=== PATIENT | female | born 1960 | race Caucasian/White ===

== ENCOUNTER 2017-01-16 22:42 | Emergency (ER) | payer BC ==
--- NOTE | ~2017-01-16 | CT71 ---
[facility] A Service [facility] RADIOLOGY TEXT RESULTS PATIENT: RADHA NAVAS LOCATION: SED : 56 UNIT #: [id number] AGE: [address]: Joseph Hackett MD SEX: F ORDER DR: [id number] [place] [id number] MR#: [id number] Acc #: [id number] NAME: RADHA NAVAS : 1960 SEX: F STUDY DATE/TIME: 01/17/2017 0:06 UNIT: SED ROOM: STUDY DESCRIPTION: CT Head Wo Contrast Attending Physician: Joseph Hackett M.D. Ordering Physician: Joseph Hackett M.D. Primary Care Physician: Primary Care Physician No MEDICAL IMAGING REPORT This report is preliminary unless electronic signature is present. EXAM CT scan of the head without contrast INDICATION Weakness, tingling in legs, tired for 13 days. FINDINGS Axial noncontrast images were obtained from the skull base to the vertex. This CT examination was performed with one or more of the following radiation dose reduction techniques: automatic exposure control, adjustment of mA and/or kV according to patient size, and iterative reconstruction. Ventricular size and configuration are normal. There is no evidence of acute infarct or hemorrhage. There are no extraaxial fluid collections. No mass lesion or mass effect is seen. There are no skull fractures. IMPRESSION Normal noncontrast head CT. Dictated by... Shaggy Lynn M.D. THIS IS AN ELECTRONICALLY VERIFIED REPORT Shaggy Lynn M.D. at 01/17/2017 1:30 PM NEGRITA/narciso [facility] A Service [facility] RADIOLOGY TEXT RESULTS PATIENT: RADHA NAVAS LOCATION: SED : 56 UNIT #: [id number] AGE: [address]: Joseph Hackett MD SEX: F ORDER DR: TD: 01/17/2017 08:03 JOB #: [id number] MEDICAL IMAGING REPORT Page 1 of 1
--- NOTE | ~2017-01-16 | EKG ---
PATIENT: RADHA NAVAS UNIT #: [id number] Ventricular Rate: 70 BPM Atrial Rate: 70 BPM P-R Interval: 142 ms QRS Duration: 70 ms Q-T Interval: 404 ms QTC Calculation(Bezet): 436 ms P [place]: 79 degrees Calculated R [place]: 73 degrees Calculated T [place]: 77 degrees Diagnosis Line: Normal sinus rhythm Diagnosis Line: ST abnormality, possible digitalis effect Diagnosis Line: Abnormal ECG Diagnosis Line: No previous ECGs available Diagnosis Line: Confirmed by LATESHA MAC MD ([id number]) on Diagnosis Line: 01/28/2017 8:26:39 AM INTERPRETING MD: ESTEFANIA DICKENS
[2017-01-16] MEDS ORDERED: MUCINEX DM ER1 EACH (23:01)
[2017-01-16] MEDS ORDERED: PROGESTERONE100 MG (23:01)
[2017-01-16] MEDS ORDERED: TRAZODONE (23:02)
[2017-01-16] MEDS ORDERED: LAMICTAL ODT200 MG (23:02)
[2017-01-16] MEDS ORDERED: ESTRADIOL1 MG (23:02)
[2017-01-16] MEDS ORDERED: ADDERALL (23:02)
[2017-01-16] MEDS ORDERED: PREDNISONE (23:02)
[2017-01-16] MEDS ORDERED: OMNICEF (23:03)
[2017-01-16] MEDS ORDERED: PROAIR HFA8.5 GM (23:03)
[2017-01-16 23:36] LABS: URINE SOURCE CLEAN CATCH
[2017-01-16 23:39] LABS: URINE APPEARANCE CLEAR; URINE BILIRUBIN NEG (NEG); URINE BLOOD NEG (NEG); URINE COLOR YELLOW; URINE GLUCOSE NEG (NORM); URINE KETONE NEG (NEG); URINE LEUKOCYTE ESTERASE NEG (NEG); URINE NITRATE NEG (NEG); URINE PROTEIN NEG (NEG); URINE SPECIFIC GRAVITY 1.015 (1.003-1.035)
[2017-01-16 23:40] LABS: MICRO INDICATED? NO
[2017-01-17 00:03] LABS: BASOPHIL# 0.1 X10e3 (0-0.3); BASOPHIL% 0.5 % (0-2.5); EOSINOPHIL% 0.3 % (0.0-7.0); HEMATOCRIT 41.5 % (35.0-45.0); HEMOGLOBIN 14.1 gm/dL (12.0-16.0); LYMPHOCYTE% 7.2 % (17.0-45.0); MEAN CELL VOLUME 91.9 FL (83-96); MEAN CORPUSCULAR HEMOGLOBIN 31.2 PG (28-34); MEAN CORPUSCULAR HGB CONC 33.9 g/dL (30-36); MEAN PLATELET VOLUME 7.4 FL (6.5-11.5); MONOCYTE# 0.2 X10e3 (0-1.0); MONOCYTE% 1.6 % (3.0-12.0); NEUTROPHIL# 12.7 X10e3 (1.5-7.1); NEUTROPHIL% 90.4 % (40-75); PLATELET COUNT 357 X10e3 (140-420); RED BLOOD COUNT 4.51 X10e (3.90-5.30); RED CELL DISTRIBUTION WIDTH 13.3 % (11.0-15.5)
[2017-01-17 00:04] LABS: DIFF IND NO
[2017-01-17 00:18] LABS: POC - CKMB <1.0 ng/mL (0.0-7.9); POC - TROPONIN <0.05 ng/mL (<=0.05)
[2017-01-17 00:23] LABS: ALBUMIN SERUM 4.5 g/dL (3.5-5.0); BILIRUBIN, DIRECT 0.2 mg/dL (0.0-0.2); BILIRUBIN,INDIRECT 0.8 mg/dL (0.0-0.9); BUN/CREATININE RATIO 13.75; CALCIUM SERUM 9.1 mg/dL (8.4-10.2); CREATININE SERUM 0.8 mg/dL (0.6-1.4); GLOM FILT RATE Estimated 81.3 mL/min (>60); POTASSIUM 3.7 mmol/L (3.5-5.1); PROTEIN TOTAL SERUM 7.8 g/dL (6.0-8.3)
== END 2017-01-17 01:48 | disposition home or self-care (01) ==
LOC: SED 22:42
PROVIDERS: Emergency Medicine
DX: R53.1 Weakness (principal); T48.6X5A Adverse effect of antiasthmatics, initial encounter; T36.1X5A Adverse effect of cephalosporins and other beta-lactam antibiotics, initial encounter
CPT/HCPCS: 36415; 70450; 80048; 80076; 81003; 82553; 82947; 84484; 85025; 96360; 99284

== ENCOUNTER 2017-01-19 06:15 | Emergency (ER) | payer BC ==
[~2017-01-19 06:15] MED LIST: ADDERALL; ESTRADIOL1 MG; LAMICTAL ODT200 MG; MUCINEX DM ER1 EACH; OMNICEF; PREDNISONE; PROAIR HFA8.5 GM; PROGESTERONE100 MG; TRAZODONE
== END 2017-01-19 08:29 | disposition home or self-care (01) ==
LOC: SED 06:15
DX: F41.9 Anxiety disorder, unspecified (principal); G40.909 Epilepsy, unspecified, not intractable, without status epilepticus
CPT/HCPCS: 99284